=== PATIENT | female | born 1940 | race Hispanic/Latino ===

== ENCOUNTER 2017-07-19 14:59 | Emergency (ER) | payer OTHER, MEDICARE, MEDICAID | END 2017-07-19 18:30 | disposition home or self-care (01) | LOC: ERS 14:59 | DX: S09.90XA Unspecified injury of head, initial encounter (principal); V43.52XA Car driver injured in collision with other type car in traffic accident, initial encounter | CPT/HCPCS: 99283 ==

== ENCOUNTER 2017-07-26 17:26 | Emergency (ER) | payer MEDICARE, MEDICAID | END 2017-07-26 19:27 | LOC: ERS 17:26 | DX: Z53.21 Procedure and treatment not carried out due to patient leaving prior to being seen by health care provider (principal) ==

== ENCOUNTER 2017-12-27 15:56 | Emergency (ER) | payer MEDICARE, MEDICAID ==
[2017-12-27 16:21] LABS: #Basophils 0.1 thou/uL (0.0-0.2); #Eosinphils 0.2 thou/uL (0.0-0.7); #Lymphocytes 2.5 thou/uL (1.20-3.40); #Monocytes 0.4 thou/uL (0.11-0.59); #Neutrophils 3.8 thou/uL (1.40-6.50); %Basophils 1.3 % (0.0-1.0); %Eosinophils 3.3 % (0.0-10.0); %Lymphocytes 35.8 % (21.0-51.0); %Monocytes 5.1 % (0.0-10.0); %Neutrophils 54.5 % (42.0-75.0); Hemoglobin 13.3 g/dL (12.0-16.0); Mean Corpuscular HGB CONC 32.4 g/dL (32.0-36.0); Mean Corpuscular Hemoglobin 30.1 pg (27.0-31.0); Mean Corpuscular Volume 93.1 fL (78.0-98.0); Mean Platelet Volume 7.1 fL (7.4-10.4); Platelet Count 260 thou/uL (130-400); RBC Distribution Width 13.2 % (11.5-14.5); Red Blood Cell (RBC) Count 4.42 mill/uL (4.20-5.40)
[2017-12-27 16:42] LABS: ALT (SGPT) 12 U/L (8-55); AST (SGOT) 16 U/L (5-34); Albumin 4.2 g/dL (3.4-4.8); Alkaline Phosphatase 129 U/L (40-150); Anion Gap 14 mmol/L (10-20); BUN (Urea Nitrogen) 12 mg/dL (9.8-20.1); Bilirubin, Total 0.4 mg/dL (0.2-1.2); CK (CPK) 121 U/L (29-168); Calc. Creatinine Clearance 0 mL/min (70-130); Calcium 9.8 mg/dL (7.8-10.44); Carbon Dioxide 25 mmol/L (23-31); Chloride 106 mmol/L (98-107); Estimated GFR-MDRD 62; Globulin 3.1 g/dL (2.4-3.5); Glucose 134 mg/dL (83-110); Potassium 3.7 mmol/L (3.5-5.1); Protein, Total 7.3 g/dL (6.0-8.3); Sodium 141 mmol/L (136-145)
[2017-12-27 16:47] LABS: CKMB 2.1 ng/mL (0-6.6); Troponin I 0.011 ng/mL (< 0.028)
--- NOTE | 2017-12-27 16:55 | RAD ---
AP VIEW OF THE CHEST: 12/27/17 INDICATION: Shortness of breath. COMPARISON: Prior exam dated 03/10/13. IMPRESSION: No acute cardiopulmonary abnormality. The examination is not appreciably changed from the comparison study. POS: [facility]
== END 2017-12-27 18:45 | disposition home or self-care (01) ==
LOC: ERS 15:56
DX: R06.02 Shortness of breath (principal); Z79.899 Other long term (current) drug therapy
CPT/HCPCS: 71045; 80053; 82553; 83880; 84484; 85025; 93005

== ENCOUNTER 2018-01-09 12:50 | Outpatient (CLI) | payer MEDICARE, MEDICAID ==
--- NOTE | 2018-01-09 15:00 | CT ---
CT ABDOMEN AND PELVIS WITH AND WITHOUT IV CONTRAST: 01/09/2018 PROVIDED CLINICAL HISTORY: Hematuria. COMPARISON: 11/28/2016 FINDINGS: The visualized lung bases are free of significant opacity. There is no evidence for urinary tract calculi. There is asymmetric distention of the right renal pe lvis and right ureter, with respect to the left, the latter of which appears distended, to the level of the iliac vessel crossing. This appears similar to the prior study. There is no calyceal bluntin g. The liver, spleen, pancreas, and adrenal glands appear unremarkable. There is no evidence for renal mass. The delayed images demonstrate no evidence for a filling defect involving the renal collecting systems or the opacified ureters. The urinary bladder appears unremarkable by CT. There is no bowel dilatation, inflammatory fat stranding, free fluid, or lymph node enlargement appar ent. Vascular calcifications are noted involving the abdominal aorta and its branches. The osseous structures demonstrate no concerning lytic or blastic lesions. IMPRESSION: 1. Stable prominence of the right renal pelvis and right ureter, to the level of the iliac crossing. This is presumably physiologic. Correlation with retrograde urography may be useful, as clinically indicated. 2. Chronic findings as above. POS: [facility]
== END 2018-01-09 12:51 | disposition home or self-care (01) ==
LOC: CT 12:50
PROVIDERS: ATTEND Urology
DX: R31.21 Asymptomatic microscopic hematuria (principal)
CPT/HCPCS: 74178

== ENCOUNTER 2018-05-08 18:01 | Emergency (ER) | payer MEDICARE, MEDICAID ==
[2018-05-08 18:24] LABS: Bilirubin Negative (Negative); Blood, Urine Moderate (Negative); Glucose, Urine (Dipstick) Negative (Negative); Leukocyte Small (Negative); Nitrite Negative (Negative); Protein, Urine (Dipstick) Negative (Neg-Trace); Urobilinogen 0.2 mg/dL (0.2-1.0)
[2018-05-08 18:28] LABS: Clarity Hazy (Clear)
[2018-05-08 18:33] LABS: Bacteria/HPF 1+ HPF (None Seen)
[2018-05-08] MEDS ORDERED: Acetaminophen 500 MG TAB ONE (18:34)
[2018-05-08 18:59] LABS: #Basophils 0.1 thou/uL (0.0-0.2); #Lymphocytes 1.4 thou/uL (1.20-3.40); #Monocytes 0.6 thou/uL (0.11-0.59); #Neutrophils 7.4 thou/uL (1.40-6.50); %Basophils 0.8 % (0.0-1.0); %Eosinophils 0.3 % (0.0-10.0); %Lymphocytes 14.7 % (21.0-51.0); %Monocytes 6.4 % (0.0-10.0); %Neutrophils 77.9 % (42.0-75.0); Hemoglobin 12.7 g/dL (12.0-16.0); Mean Corpuscular HGB CONC 33.6 g/dL (32.0-36.0); Mean Corpuscular Hemoglobin 29.4 pg (27.0-31.0); Mean Corpuscular Volume 87.6 fL (78.0-98.0); Mean Platelet Volume 8.1 fL (7.4-10.4); Platelet Count 198 thou/uL (130-400); RBC Distribution Width 12.2 % (11.5-14.5); Red Blood Cell (RBC) Count 4.31 mill/uL (4.20-5.40); White Blood Cell (WBC) Count 9.5 thou/uL (4.8-10.8)
[2018-05-08 19:13] LABS: ALT (SGPT) 14 U/L (8-55); AST (SGOT) 17 U/L (5-34); Albumin 4.2 g/dL (3.4-4.8); Alkaline Phosphatase 125 U/L (40-150); Anion Gap 13 mmol/L (10-20); BUN (Urea Nitrogen) 11 mg/dL (9.8-20.1); Bilirubin, Total 0.6 mg/dL (0.2-1.2); Calc. Creatinine Clearance 0 mL/min (70-130); Carbon Dioxide 25 mmol/L (23-31); Chloride 102 mmol/L (98-107); Estimated GFR-MDRD 72; Globulin 3.3 g/dL (2.4-3.5); Glucose 117 mg/dL (83-110); Lipase 9 U/L (8-78); Potassium 3.9 mmol/L (3.5-5.1); Protein, Total 7.5 g/dL (6.0-8.3); Sodium 136 mmol/L (136-145)
--- NOTE | 2018-05-08 19:53 | RAD ---
FRONTAL AND LATERAL IMAGING CHEST: Date: 05-08-18 Comparison: 12-27-17 History: Shoulder pain, abdominal pain. FINDINGS: There is atherosclerotic calcification of the aortic arch. No pneumothorax, pleural fluid, focal cons olidation or alveolar edema. There is atherosclerotic calcification of the imaged abdominal aorta. There is midthoracic spine disc space narrowing and anterior osteophyte formation. IMPRESSION: No acute findings. POS: [facility]
--- NOTE | 2018-05-08 20:43 | RAD ---
RIGHT SHOULDER THREE VIEWS: 05/08/18 COMPARISON: None. HISTORY: Pain. FINDINGS: Mild degenerative change of the right acromioclavicular joint. No widening of the acromioclavicular o r coracoclavicular interspace. No displaced fracture or evidence of dislocation seen. IMPRESSION: No acute fracture or evidence of dislocation. POS: [facility]
== END 2018-05-08 20:05 | disposition home or self-care (01) ==
LOC: SCSER 18:01
DX: M19.011 Primary osteoarthritis, right shoulder (principal); N39.0 Urinary tract infection, site not specified; I10 Essential (primary) hypertension; Z79.82 Long term (current) use of aspirin; Z79.899 Other long term (current) drug therapy
CPT/HCPCS: 36415; 71046; 80053; 81003; 81015; 83605; 83690; 85025; 87040; 87086; 87149; 87804

== ENCOUNTER 2019-02-03 23:17 | Emergency (ER) | payer MEDICARE, MEDICAID ==
[2019-02-04 01:16] LABS: #Basophils 0.1 thou/uL (0.0-0.2); #Eosinphils 0.3 thou/uL (0.0-0.7); #Lymphocytes 2.5 thou/uL (1.20-3.40); #Monocytes 0.6 thou/uL (0.11-0.59); #Neutrophils 4.5 thou/uL (1.40-6.50); %Basophils 1.6 % (0.0-1.0); %Lymphocytes 30.6 % (21.0-51.0); %Monocytes 7.6 % (0.0-10.0); %Neutrophils 56.2 % (42.0-75.0); Hemoglobin 14.1 g/dL (12.0-16.0); Mean Corpuscular Hemoglobin 31.5 pg (27.0-31.0); Mean Corpuscular Volume 92.8 fL (78.0-98.0); Mean Platelet Volume 7.4 fL (7.4-10.4); Platelet Count 246 thou/uL (130-400); RBC Distribution Width 12.4 % (11.5-14.5); Red Blood Cell (RBC) Count 4.47 mill/uL (4.20-5.40); White Blood Cell (WBC) Count 8.1 thou/uL (4.8-10.8)
[2019-02-04 01:40] LABS: ALT (SGPT) 12 U/L (8-55); AST (SGOT) 18 U/L (5-34); Albumin 4.2 g/dL (3.4-4.8); Alkaline Phosphatase 139 U/L (40-150); Anion Gap 14 mmol/L (10-20); BUN (Urea Nitrogen) 13 mg/dL (9.8-20.1); Bilirubin, Total 0.3 mg/dL (0.2-1.2); Calc. Creatinine Clearance 0 mL/min (70-130); Carbon Dioxide 22 mmol/L (23-31); Chloride 106 mmol/L (98-107); Estimated GFR-MDRD 69; Globulin 3.1 g/dL (2.4-3.5); Glucose 94 mg/dL (83-110); Potassium 3.8 mmol/L (3.5-5.1); Protein, Total 7.3 g/dL (6.0-8.3); Sodium 138 mmol/L (136-145)
== END 2019-02-04 02:06 | disposition home or self-care (01) ==
LOC: ERS 23:17
DX: F43.0 Acute stress reaction (principal); R03.0 Elevated blood-pressure reading, without diagnosis of hypertension
CPT/HCPCS: 80053; 85025; 99283

== ENCOUNTER 2021-01-11 22:13 | Emergency (ER) | payer OTHER, MEDICARE, MEDICAID | END 2021-01-11 23:53 | disposition home or self-care (01) | LOC: ERS 22:13 | DX: S60.222A Contusion of left hand, initial encounter (principal); V89.2XXA Person injured in unspecified motor-vehicle accident, traffic, initial encounter ==

== ENCOUNTER 2021-02-16 16:34 | Emergency (ER) | payer MEDICARE, MEDICAID | END 2021-02-16 19:28 | disposition home or self-care (01) | LOC: ERS 16:34 | DX: M25.532 Pain in left wrist (principal) ==

== ENCOUNTER 2021-05-21 12:55 | Emergency (ER) | payer MEDICARE, MEDICAID | END 2021-05-21 14:00 | disposition home or self-care (01) | LOC: ERS 12:55 | DX: L30.9 Dermatitis, unspecified (principal); L03.115 Cellulitis of right lower limb | CPT/HCPCS: 99283 ==

== ENCOUNTER 2023-02-15 15:02 | Emergency (ER) | payer OTHER, MEDICAID | END 2023-02-15 19:07 | disposition left against medical advice (07) | LOC: ERS 15:02 | DX: S62.521A Displaced fracture of distal phalanx of right thumb, initial encounter for closed fracture (principal); S61.011A Laceration without foreign body of right thumb without damage to nail, initial encounter; W23.0XXA Caught, crushed, jammed, or pinched between moving objects, initial encounter ==

== ENCOUNTER 2025-02-21 12:49 | Emergency (ER) | payer OTHER, MEDICAID ==
[~2025-02-21 12:49] MED LIST: Iopamidol-370 76% 500 ML MDV (1 ML CHARGE) ONE
[2025-02-21 14:11] LABS: #Basophils 0.03 10x3/uL (0.0-0.2); #Eosinophils 0.03 10x3/uL (0.0-0.7); #Monocytes 0.29 10x3/uL (0.11-0.59); #Neutrophils 5.65 10x3/uL (1.40-6.50); %Basophils 0.4 % (0.0-1.0); %Eosinophils 0.4 % (0.0-10.0); %Lymphocytes 14.1 % (21.0-51.0); %Monocytes 4.1 % (0.0-10.0); %Neutrophils 80.9 % (42.0-75.0); Hematocrit 39.9 % (36.0-47.0); Hemoglobin 13.3 g/dL (12.0-16.0); Mean Corpuscular Hemoglobin 31.1 pg (27.0-31.0); Mean Corpuscular Volume 93.4 fL (78.0-98.0); Platelet Count 227 10x3/uL (130-400); Red Blood Cell (RBC) Count 4.27 mill/uL (4.20-5.40); White Blood Cell (WBC) Count 7.00 10x3/uL (4.8-10.8)
[2025-02-21] MEDS ORDERED: Ondansetron PF 4 MG/2 ML Vial ONE (14:23)
[2025-02-21 14:25] LABS: ALT (SGPT) 10 U/L (Less than 34); AST (SGOT) 18 U/L (11-34); Albumin 3.8 g/dL (3.1-4.5); Alkaline Phosphatase 107 U/L (40-110); Anion Gap 16 mmol/L (10-20); BUN (Urea Nitrogen) 12 mg/dL (9.8-20.1); Bilirubin, Total 0.6 mg/dL (0.3-1.2); Calc. Creatinine Clearance 0 mL/min (70-130); Calcium 9.5 mg/dL (7.8-10.44); Carbon Dioxide 23 mmol/L (23-31); Chloride 105 mmol/L (98-107); Globulin 3.1 g/dL (2.4-3.5); Glucose 122 mg/dL (83-110); Lipase 11 U/L (8-78); Potassium 3.8 mmol/L (3.5-5.1); Sodium 140 mmol/L (136-145)
[2025-02-21 14:37] LABS: Bacteria/HPF 4+ HPF (None Seen); CAUTI Indications for Culture Acute Hematuria; Glucose, Urine (Dipstick) Normal (Negative); Leukocyte 500 Leu/uL (Negative); Protein, Urine (Dipstick) Negative (Neg-Trace); RBC/HPF 0-3 HPF (0-3); Specific Gravity, Urine 1.015 (1.002-1.036); WBC/HPF 21-50 HPF (0-3)
[2025-02-21 15:01] LABS: Urine Culture Reflex Yes Yes
[2025-02-21] MEDS ORDERED: diphenhydrAMINE 50 MG/ML VIAL ONE (16:50)
[2025-02-21] MEDS ORDERED: Famotidine/PF 20 mg/2ml Vial ONE (16:50)
[2025-02-21] MEDS ORDERED: Ketorolac Tromethamine 30 MG (1 mL) VIAL ONE (18:21)
[2025-02-21] MEDS ORDERED: cefTRIAXone (ROCEPHIN) 2 GM VIAL ONE (19:43)
== END 2025-02-21 20:30 | disposition home or self-care (01) ==
LOC: ERS 12:49
DX: N39.0 Urinary tract infection, site not specified (principal); R11.2 Nausea with vomiting, unspecified
CPT/HCPCS: 70450; 71045; 71275; 74177; 80053; 81001; 83690; 84484; 85025; 85379; 87077; 87086; 87186; 93005; 96361; 96365; 96375; 99285; J0696; J1200; J1885; J2405; J2919; Q9967; 36415; J1308